=== PATIENT | female | born 1980 | race Caucasian/White ===

== ENCOUNTER 2017-06-15 16:22 | Emergency (ER) | payer MEDICAID, OTHER ==
[~2017-06-15] VITALS: Ht 162.6 cm; Wt 45.0 kg
[~2017-06-15 16:22] MED LIST: IBUP800T23 PO; METH5SOL3 PO; NAPR220T95 PO
[2017-06-15 16:29] VITALS: BP 136/76; PULSE 76; RESP 16; TEMP 99.1; O2SAT 100
[2017-06-15] MEDS ORDERED: BACT800T5 PO (16:48)
--- NOTE | 2017-06-15 16:53 | PD ---
HPI Chief Complaint: Skin Problem Time Seen by Provider: 16:30 Travel History International Travel<30 days: No Contact w/Intl Traveler<30days: No Traveled to known affect area: No History of Present Illness HPI 36 old female presents emergency department for evaluation of possible insect bite left upper extremity. She reports yesterday she was helping her yardwork and shortly after noticed pain and a single small lesion the left upper extremity. Since then she reports areas become increasingly painful and red. She denies fever or chills. She denies history of IV drug abuse. No aggravating or alleviating factors. Symptoms severity is mild to moderate PFSH Past Medical History Asthma: Yes Blood Disorders: No Cancer: No Cardiovascular Problems: No Diabetes: No Diminished Hearing: No Endocrine: No Gastrointestinal Disorders: No Genitourinary: No Immune Disorder: No Implanted Vascular Access Dvce: No Musculoskeletal: Yes (LUMBAR DISC HERNATION-CHRONIC BACK PAIN) Psychiatric: No Reproductive: No Respiratory: Yes (ASTHMA) ?: Not LMP: now Past Surgical History Other Surgery: No Social History Alcohol Use: No Tobacco Use: Yes (1/2ppd) Substance Use: No Allergies-Medications (Allergen,Severity, Reaction): Coded Allergies: Darvocet-N 100 (Verified Adverse Reaction, Severe, "SICK AND DEPRESSED", ) Erythromycin (Verified Adverse Reaction, Severe, vomit, 06/15/17) Reported Meds & Prescriptions Reported Meds & Active Scripts Active No Active Prescriptions or Reported Medications Review of Systems Except as stated in HPI: all other systems reviewed are Neg General / Constitutional: No: Fever Eyes: No: Visual changes HENT: No: Headaches Cardiovascular: No: Chest Pain or Discomfort Respiratory: No: Shortness of Breath Physical Exam Narrative GENERAL: Well-nourished, well-developed patient. SKIN: Focused skin assessment warm/dry. 1 cm circular area of induration/ erythema left anterior forearm. No fluctuance. There is no surrounding cellulitis or lymphangitis. HEAD: Normocephalic. EYES: No scleral icterus. No injection or drainage. NECK: Supple, trachea midline. No JVD or lymphadenopathy. CARDIOVASCULAR: Regular rate and rhythm without murmurs, gallops, or rubs. RESPIRATORY: Breath sounds equal bilaterally. No accessory muscle use. GASTROINTESTINAL: Abdomen soft, non-tender, nondistended. MUSCULOSKELETAL: No cyanosis, or edema. BACK: Nontender without obvious deformity. No CVA tenderness. Data Data Last Documented VS Vital Signs Date Time Temp Pulse Resp B/P Pulse Ox O2 Delivery O2 Flow Rate FiO2 06/15/17 16:29 99.1 76 16 136/76 100 MDM Medical Decision Making Medical Screen Exam Complete: Yes Emergency Medical Condition: Yes Differential Diagnosis Abscess, insect bite, cellulitis Narrative Course 36-year-old female with chief complaint of left arm pain at the site of a Possible insect bite. Physical exam is reassuring. Patient has a single 1 cm circular indurated area. There is no fluctuance. There is no surrounding cellulitis or lymphangitis. Patient be treated for early abscess with Bactrim. Return precautions discussed. Patient verbalizes understanding. Diagnosis Primary Impression: Abscess Referrals: Primary Care Physician Scripts Sulfamethoxazole-Trimethoprim (Bactrim DS)800-160 Mg Tab1 Tab PO BID #20 TAB Prov:Sona Winter 06/15/17 Disposition: 01 DISCHARGE HOME Condition: Stable Sona Winter Jun 15, 2017 16:53
== END 2017-06-15 17:09 | disposition home or self-care (01) ==
LOC: PHEFT 16:22
DX: L02.414 Cutaneous abscess of left upper limb (principal); F17.210 Nicotine dependence, cigarettes, uncomplicated
CPT/HCPCS: 99283

== ENCOUNTER 2017-09-07 08:25 | Emergency (ER) | payer MEDICAID ==
[~2017-09-07] VITALS: Ht 162.6 cm; Wt 46.6 kg
[~2017-09-07 08:25] MED LIST changes: +BACT800T5 PO; -IBUP800T23 PO; -METH5SOL3 PO; -NAPR220T95 PO
[2017-09-07] MEDS ORDERED: NAPR220C22 PO (08:34)
[2017-09-07 08:35] VITALS: BP 131/52; PULSE 68; RESP 18; TEMP 97.7; O2SAT 97
[2017-09-07] MEDS ORDERED: CYCLOBENZAPRINE HCL 10 MG TAB PO ONE (08:45)
[2017-09-07] MEDS ORDERED: IBUPROFEN 600 MG TAB PO ONE (08:45)
--- NOTE | 2017-09-07 08:48 | PD ---
HPI Chief Complaint: Back/ Neck Pain or Injury Time Seen by Provider: 08:33 Travel History International Travel<30 days: No Contact w/Intl Traveler<30days: No Traveled to known affect area: No History of Present Illness HPI patient is a 36-year-old female with a history of degenerative disc disease presents emergency Department with 1 day history of low back pain. Patient states she was lifting a log yesterday and felt sudden onset of pain radiating down her legs and low back pain. She states that she continues to have pain in her low back and lower extremities and states her legs gave out twice yesterday. States the pain is severe. She has not tried anything to help relieve her pain. She denies any saddle anesthesia denies any difficulty urinating denies history of IV drug use or illicit substance use. PFSH Past Medical History Asthma: Yes Blood Disorders: No Cancer: No Cardiovascular Problems: No Diabetes: No Diminished Hearing: No Endocrine: No Gastrointestinal Disorders: No Genitourinary: No Immune Disorder: No Implanted Vascular Access Dvce: No Musculoskeletal: Yes (LUMBAR DISC HERNATION-CHRONIC BACK PAIN) Psychiatric: No Reproductive: No Respiratory: Yes (ASTHMA) Influenza Vaccination: No ?: Not LMP: 08/2017 Past Surgical History Other Surgery: No Social History Alcohol Use: No Tobacco Use: Yes (1/2ppd) Substance Use: No Allergies-Medications (Allergen,Severity, Reaction): Coded Allergies: acetaminophen (Unverified Adverse Reaction, Severe, "SICK AND DEPRESSED", 09/07/17) erythromycin base (Unverified Adverse Reaction, Severe, vomit, 09/07/17) propoxyphene (Unverified Adverse Reaction, Severe, "SICK AND DEPRESSED", 09/07/17) Reported Meds & Prescriptions Reported Meds & Active Scripts Active Flexeril (Cyclobenzaprine HCl) 5 Mg Tab 5 Mg PO TID [place] (Hydrocodone-Acetaminophen) 5-325 mg Tab 1 Tab PO Q6H PRN Ibuprofen 600 Mg Tab 600 Mg PO Q8HR PRN Reported Aleve (Naproxen Sodium) 220 Mg Capsule 220 Mg PO TODAY Review of Systems Except as stated in HPI: all other systems reviewed are Neg Physical Exam Narrative GENERAL: Well-nourished, well-developed patient. In moderate discomfort. SKIN: Focused skin assessment warm/dry. HEAD: Normocephalic. EYES: No scleral icterus. No injection or drainage. NECK: Supple, trachea midline. No JVD or lymphadenopathy. CARDIOVASCULAR: Regular rate and rhythm without murmurs, gallops, or rubs. RESPIRATORY: Breath sounds equal bilaterally. No accessory muscle use. GASTROINTESTINAL: Abdomen soft, non-tender, nondistended. MUSCULOSKELETAL: No cyanosis, or edema. There is some minimal midline low back pain proximal male one her T12. No step-off. She has 5 out of 5 strength in all 4 extremities. Compartments are soft. DTRs are 2+ bilateral equal at patella and Achilles. BACK: Nontender without obvious deformity. No CVA tenderness. Data Data Last Documented VS Vital Signs Date Time Temp Pulse Resp B/P (MAP) Pulse Ox O2 Delivery O2 Flow Rate FiO2 09/07/17 10:25 69 18 125/70 (88) 96 09/07/17 08:35 97.7 Orders Orders Ibuprofen (Motrin) (09/07/17 08:45) Cyclobenzaprine (Flexeril) (09/07/17 08:45) Spine, Lumbar - Ltd (Ap & Lat) (09/07/17 ) Ed Discharge Order (09/07/17 10:06) MDM Medical Decision Making Medical Screen Exam Complete: Yes Emergency Medical Condition: Yes Differential Diagnosis Strain, sprain, fracture seems unlikely, degenerative disc disease, cauda equina is excluded clinically. Given no IV drug use patient is low risk for epidural or spinal abscess. Narrative Course Patient roomed emergency department, given pain medicine, rigidity back were remarkable only for loss of disc space between L5 and S1. She is neurologically intact and stable for discharge. Discussed follow-up with the [facility]. Diagnosis Primary Impression: Low back pain Qualified Codes: M54.42 - Lumbago with sciatica, left side; M54.41 - Lumbago with sciatica, right side Referrals: [facility] Med/Other Pt SpecificInfo: Prescription(s) given Scripts Cyclobenzaprine (Flexeril) 5 Mg Tab 5 MG PO TID for Muscle Spasm, #20 TAB 0 Refills Prov: Dakota Thomas MD 09/07/17 Hydrocodone-Acetaminophen ([place]) 5-325 mg Tab 1 TAB PO Q6H Y for PAIN, #10 TAB 0 Refills Prov: Dakota Thomas MD 09/07/17 Ibuprofen (Ibuprofen) 600 Mg Tab 600 MG PO Q8HR Y for PAIN, #20 TAB 0 Refills Prov: Dakota Thomas MD 09/07/17 Disposition: 01 DISCHARGE HOME Condition: Stable Dakota Thomas MD Sep 07, 2017 08:48
[2017-09-07] MEDS ORDERED: IBUP-232 PO (09:44)
[2017-09-07] MEDS ORDERED: NORC5TAB PO (09:44)
[2017-09-07] MEDS ORDERED: CYCL5TAB PO (09:44)
[2017-09-07 09:50] VITALS: RESP 18
--- NOTE | 2017-09-07 09:59 | RADRPT ---
EXAM DATE/TIME: 09/07/2017 09:11 [facility] COMPARISON: No previous studies available for comparison. INDICATIONS : Patient experiencing low back pain after picking up log. MEDICAL HISTORY : None. SURGICAL HISTORY : None. ENCOUNTER: Initial ACUITY: 1 day PAIN SCORE: 9/10 LOCATION: Bilateral low back FINDINGS: Two view examination was performed. There are five non-rib bearing vertebral bodies. The vertebral bodies are in normal alignment without evidence of subluxation or scoliosis. There is disc space narr owing without significant osteophyte production at L5-S1. Remaining disc spaces are preserved. The pe dicles are intact. Bony mineralization is normal. No fracture is identified. CONCLUSION: L5-S1 degenerative disc disease. No acute abnormality. Washington Flowers Jr., MD on September 07, 2017 at 9:56 Board Certified Radiologist. This report was verified electronically.
[2017-09-07 10:25] VITALS: BP 125/70
== END 2017-09-07 10:26 | disposition home or self-care (01) ==
LOC: PHED 08:25
DX: M54.42 Lumbago with sciatica, left side (principal); M54.41 Lumbago with sciatica, right side; F17.200 Nicotine dependence, unspecified, uncomplicated; Z87.09 Personal history of other diseases of the respiratory system; Z87.39 Personal history of other diseases of the musculoskeletal system and connective tissue
CPT/HCPCS: 72100; 99284

== ENCOUNTER 2017-10-26 09:51 | Emergency (ER) | payer MEDICAID ==
[~2017-10-26] VITALS: Ht 162.6 cm; Wt 48.0 kg
[~2017-10-26 09:51] MED LIST changes: -BACT800T5 PO; +CYCL5TAB PO; +IBUP-232 PO; +NAPR220C22 PO; +NORC5TAB PO
[2017-10-26 09:53] VITALS: BP 113/55; PULSE 85; RESP 16; TEMP 97.9; O2SAT 98
--- NOTE | 2017-10-26 10:14 | PD ---
HPI . Knee injury Chief Complaint: Injury Time Seen by Provider: 10:05 Travel History International Travel<30 days: No Contact w/Intl Traveler<30days: No Traveled to known affect area: No History of Present Illness HPI Patient presents for the evaluation of a right knee injury. She states that she struck her knee 2 weeks ago. She reports increasing pain in her knee since that time. It has also swollen. She states that she has treated it with Aleve , ice and elevation without relief. She denies any previous knee injury or chronic knee problems. She rates the pain at 10/10. She reports no exacerbating or relieving factors. She has no associated symptoms. PFSH Past Medical History Asthma: Yes Blood Disorders: No Cancer: No Cardiovascular Problems: No Diabetes: No Diminished Hearing: No Endocrine: No Gastrointestinal Disorders: No Genitourinary: No Immune Disorder: No Implanted Vascular Access Dvce: No Musculoskeletal: Yes (LUMBAR DISC HERNATION-CHRONIC BACK PAIN) Psychiatric: No Reproductive: No Respiratory: Yes (ASTHMA) Influenza Vaccination: No ?: Not Past Surgical History Surgical History: No Previous Surgery Other Surgery: No Social History Alcohol Use: No Tobacco Use: Yes (1/2ppd) Substance Use: No Allergies-Medications (Allergen,Severity, Reaction): Coded Allergies: acetaminophen (Unverified Adverse Reaction, Severe, "SICK AND DEPRESSED", 10/26/17) erythromycin base (Unverified Adverse Reaction, Severe, vomit, 10/26/17) propoxyphene (Unverified Adverse Reaction, Severe, "SICK AND DEPRESSED", 10/26/17) Reported Meds & Prescriptions Reported Meds & Active Scripts Active Nabumetone 500 Mg Tab 500 Mg PO BID Review of Systems Except as stated in HPI: all other systems reviewed are Neg Musculoskeletal: Positive: Arthralgias, Limited ROM Physical Exam Narrative GENERAL: Awake and alert and in no acute distress. Speaking in a whining voice. SKIN: Warm and dry. Intact. No bruising or abrasions. HEAD: Normocephalic/atraumatic. EYES: Pupils are equal. Extraocular movements are intact. NECK: Normal range of motion. CARDIOVASCULAR: Regular rate and rhythm. RESPIRATORY: Nonlabored respirations. MUSCULOSKELETAL: Swelling of the right knee. Diffusely tender. The knee is stable. Various manipulations of the knee cause no increased pain. She is distally neurovascularly intact. NEUROLOGICAL: Nonfocal. PSYCHIATRIC: Appropriate mood and affect. Data Data Last Documented VS Vital Signs Date Time Temp Pulse Resp B/P (MAP) Pulse Ox O2 Delivery O2 Flow Rate FiO2 10/26/17 09:53 97.9 85 16 113/55 (74) 98 Orders Orders Knee, Complete (4vws) (10/26/17 10:05) Ketorolac Inj (Toradol Inj) (10/26/17 10:15) Roel Bandage (10/26/17 10:33) Crutches (10/26/17 10:33) Ed Discharge Order (10/26/17 10:33) MDM Medical Decision Making Medical Screen Exam Complete: Yes Emergency Medical Condition: Yes Differential Diagnosis Differential diagnosis of extremity trauma includes but is not limited to fracture, sprain or strain, dislocation, contusion Narrative Course This patient presents with a right knee injury which occurred 2 weeks ago. She reports that her symptoms are getting worse rather than better. She does have a swollen. X-ray is pending. Last Impressions Knee X-Ray 10/26/17 1005 Signed Impressions: Service Date/Time: , October 26, 2017 10:15 - CONCLUSION: Tiny joint effusion. Washington Flowers Jr., MD The patient will be discharged home with RICE therapy Diagnosis Primary Impression: Contusion of right knee Qualified Codes: S80.01XA - Contusion of right knee, initial encounter Patient Instructions: Contusion in Adults (DC), General Instructions, RICE Therapy (ED) Med/Other Pt SpecificInfo: Prescription(s) given Scripts Nabumetone (Nabumetone) 500 Mg Tab 500 MG PO BID for Pain-Inflammation, #60 TAB 0 Refills Prov: Ritu Dutta MD 10/26/17 Disposition: DISCHARGE HOME Condition: Stable Ritu Dutta MD Oct 26, 2017 10:14
[2017-10-26] MEDS ORDERED: KETOROLAC TROMETHAMINE 60 MG/2 ML (IM) VIAL IM ONE (10:15)
[2017-10-26] MEDS ORDERED: NABU1TAB37 PO (10:32)
--- NOTE | 2017-10-26 10:38 | RADRPT ---
EXAM DATE/TIME: 10/26/2017 10:15 [facility] COMPARISON: No previous studies available for comparison. INDICATIONS : Right knee pain and swelling, patient hit knee on door 2 weeks ago. MEDICAL HISTORY : None. SURGICAL HISTORY : None. ENCOUNTER: Initial ACUITY: 2 weeks PAIN SCORE: 10/10 LOCATION: Right knee FINDINGS: Four view examination of the right knee demonstrates no evidence of fracture or dislocation. Bony mi neralization is normal. The articular surfaces are intact. Tiny joint effusion. CONCLUSION: Tiny joint effusion. Washington Flowers Jr., MD on October 26, 2017 at 10:35 Board Certified Radiologist. This report was verified electronically.
== END 2017-10-26 10:43 | disposition home or self-care (01) ==
LOC: PHEFT 09:51
DX: S80.01XA Contusion of right knee, initial encounter (principal); W22.8XXA Striking against or struck by other objects, initial encounter
CPT/HCPCS: 73564; 96372; 99284; E0113; J1885

== ENCOUNTER 2017-12-13 16:16 | Emergency (ER) | payer SELFPAY ==
[~2017-12-13] VITALS: Ht 162.6 cm; Wt 47.5 kg
[~2017-12-13 16:16] MED LIST changes: -CYCL5TAB PO; -IBUP-232 PO; +NABU1TAB37 PO; -NAPR220C22 PO; -NORC5TAB PO
[2017-12-13 16:19] VITALS: BP 129/72; PULSE 88; RESP 16; TEMP 98.7; O2SAT 100
[2017-12-13] MEDS ORDERED: ALEV220T14 PO (16:50)
--- NOTE | 2017-12-13 17:11 | PD ---
HPI Chief Complaint: Skin Problem Time Seen by Provider: 16:53 Travel History International Travel<30 days: No Contact w/Intl Traveler<30days: No Traveled to known affect area: No History of Present Illness HPI 36 year old female presents for evaluation left fourth finger pain. Symptoms started 2 days ago. Throbbing pain, constant, worse with palpation. She is uncertain specifically how the pain started-believes that maybe she could have slammed in a door maybe she got poked with a thorn when doing yardwork. she is unable to remove the 2 rings on her finger. She has no other complaints at this time. [facility] Past Medical History Medical History: Denies Significant Hx Asthma: Yes Blood Disorders: No Cancer: No Cardiovascular Problems: No Diabetes: No Diminished Hearing: No Endocrine: No Gastrointestinal Disorders: No Genitourinary: No Immune Disorder: No Implanted Vascular Access Dvce: No Musculoskeletal: Yes (LUMBAR DISC HERNATION-CHRONIC BACK PAIN) Psychiatric: No Reproductive: No Respiratory: Yes (ASTHMA) Tetanus Vaccination: < 5 Years Influenza Vaccination: No ?: Not LMP: 12/13/2016 Past Surgical History Surgical History: No Previous Surgery Other Surgery: No Social History Alcohol Use: No Tobacco Use: Yes (12ppd) Substance Use: No Allergies-Medications (Allergen,Severity, Reaction): Coded Allergies: acetaminophen (Unverified Adverse Reaction, Severe, "SICK AND DEPRESSED", 12/13/17) erythromycin base (Unverified Adverse Reaction, Severe, vomit, 12/13/17) propoxyphene (Unverified Adverse Reaction, Severe, "SICK AND DEPRESSED", ) Reported Meds & Prescriptions Reported Meds & Active Scripts Active Reported Aleve Arthritis (Naproxen Sodium) 220 Mg Tab 220 Mg PO BID Review of Systems Except as stated in HPI: all other systems reviewed are Neg Physical Exam Narrative GENERAL: Well-nourished female who appears uncomfortable SKIN: Warm and dry. HEAD: Atraumatic. Normocephalic. EYES: Pupils equal and round. No scleral icterus. No injection or drainage. ENT: No nasal bleeding or discharge. Mucous membranes pink and moist. NECK: Trachea midline. No JVD. CARDIOVASCULAR: Regular rate and rhythm. No murmur appreciated. RESPIRATORY: No accessory muscle use. Clear to auscultation. Breath sounds equal bilaterally. GASTROINTESTINAL: Abdomen soft, non-tender, nondistended. Hepatic and splenic margins not palpable. MUSCULOSKELETAL: Examination of left hand reveals erythema to the distal left fourth finger, fell and formation of the left fourth finger fingerpad, inability to remove rings from proximal finger. NEUROLOGICAL: Awake and alert. No obvious cranial nerve deficits. Motor grossly within normal limits. Normal speech. Data Data Last Documented VS Vital Signs Date Time Temp Pulse Resp B/P (MAP) Pulse Ox O2 Delivery O2 Flow Rate FiO2 12/13/17 16:19 98.7 88 16 129/72 (91) 100 Orders Orders Lidocaine 1% Inj (Xylocaine 1% Inj) (12/13/17 17:15) Bupivacaine Pf 0.5% Inj (Marcaine Pf 0.5 (12/13/17 17:15) Finger (Xqs5cae) (12/13/17 ) Wound Culture And Gram Stain (12/13/17 17:06) Sulfamet-Trimeth Ds 800-160 Mg (Bactrim (12/13/17 18:00) Cephalexin (Keflex) (12/13/17 18:00) Ed Discharge Order (12/13/17 17:58) [facility] Medical Decision Making Medical Screen Exam Complete: Yes Emergency Medical Condition: Yes Medical Record Reviewed: Yes Differential Diagnosis Felon, cellulitis, tenosynovitis, fracture, ring removal Narrative Course The patient was unable to remove the rings with lubrication. Therefore she consented to have the rings cut off with ring cutters. This was successful. X- ray imaging of the left fourth finger will be obtained. X-ray imaging reveals no acute bony abnormality or foreign body. Examination is consistent with felon and paronychia to the left fourth finger. She verbally consented to wound incision and drainage. Wound culture performed. Her artificial nail also was removed. The patient is being discharged with Bactrim and Keflex. Procedures Procedure Narrative INCISION AND DRAINAGE OF FELON LEFT FOURTH FINGER: The area was prepped and was sterilely draped. Digital block performed with 1% lidocaine and 0.5% Marcaine. The area was properly anesthetized. A number 11 scalpel was used to make a 0.5-cm incision across the area of the abscess. Cultures were obtained. The abscess was drained an irrigated with normal saline. Diagnosis Primary Impression: Felon of finger of left hand Additional Instructions: Medications prescribed. Warm compresses several times a day to the affected area. Motrin for pain. Follow-up with primary care physician and return for any acutely new or worsening symptoms. Med/Other Pt SpecificInfo: Prescription(s) given Scripts Cephalexin (Keflex) 500 Mg Cap 500 MG PO Q8H for Infection, #30 CAP 0 Refills Prov: Juan Diego Jay MD 12/13/17 Sulfamethoxazole-Trimethoprim (Bactrim DS) 800-160 Mg Tab 1 TAB PO BID for Infection, #20 TAB 0 Refills Prov: Juan Diego Jay MD 12/13/17 Disposition: 01 DISCHARGE HOME Condition: Stable Mehdi Hill Dec 13, 2017 17:11
[2017-12-13] MEDS ORDERED: LIDOCAINE HCL 1% 20 ML VIAL INFIL ONE (17:15)
[2017-12-13] MEDS ORDERED: BUPIVACAINE HCL PF 0.5% 10 ML VIAL INFIL ONE (17:15)
--- NOTE | 2017-12-13 17:44 | RADRPT ---
EXAM DATE/TIME: 12/13/2017 17:23 [facility] COMPARISON: No previous studies available for comparison. INDICATIONS : Left hand, fourth digit pain after doing yard work. MEDICAL HISTORY : None. SURGICAL HISTORY : None. ENCOUNTER: Initial ACUITY: 2 days PAIN SCORE: 10/10 LOCATION: Left hand, fourth digit. FINDINGS: Examination of the fourth digit of the left hand demonstrates no evidence of fracture or dislocation. No radiopaque foreign bodies are seen. Mild soft tissue swelling of the fourth finger. CONCLUSION: Unremarkable examination of the left fourth finger except for soft tissue swelling Andres Siegel MD on December 13, 2017 at 17:41 Board Certified Radiologist. This report was verified electronically.
[2017-12-13] MEDS ORDERED: CEPH-460 PO (17:59)
[2017-12-13] MEDS ORDERED: BACT800T5 PO (17:59)
[2017-12-13] MEDS ORDERED: CEPHALEXIN MONOHYDRATE 500 MG CAP PO ONE (18:00)
[2017-12-13] MEDS ORDERED: SULFAMETHOXAZOLE-TRIMETHOPRIM DS 800-160 MG TAB PO ONE (18:00)
== END 2017-12-13 18:25 | disposition home or self-care (01) ==
LOC: PHEFT 16:16
DX: L03.012 Cellulitis of left finger (principal); B95.61 Methicillin susceptible Staphylococcus aureus infection as the cause of diseases classified elsewhere; F17.200 Nicotine dependence, unspecified, uncomplicated; Z87.09 Personal history of other diseases of the respiratory system; Z87.39 Personal history of other diseases of the musculoskeletal system and connective tissue
CPT/HCPCS: 10060; 73140; 86403; 87070; 87186; 87205

== ENCOUNTER 2018-03-26 12:06 | Emergency (ER) | payer OTHER ==
[~2018-03-26] VITALS: Ht 162.6 cm; Wt 48.0 kg
[~2018-03-26 12:06] MED LIST changes: +ALEV220T14 PO; +BACT800T5 PO; +CEPH-460 PO; -NABU1TAB37 PO
[2018-03-26 12:08] VITALS: BP 96/52; PULSE 79; RESP 18; TEMP 97.8; O2SAT 98
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
[2018-03-26] MEDS ORDERED: KETOROLAC TROMETHAMINE 60 MG/2 ML (IM) VIAL IM ONE (14:45)
[2018-03-26] MEDS ORDERED: KETO10 PO (14:58)
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
== END 2018-03-26 15:12 | disposition home or self-care (01) ==
LOC: PHEFT 12:06
DX: M25.561 Pain in right knee (principal); S29.012A Strain of muscle and tendon of back wall of thorax, initial encounter; V89.2XXA Person injured in unspecified motor-vehicle accident, traffic, initial encounter; J45.909 Unspecified asthma, uncomplicated; G89.29 Other chronic pain; M54.9 Dorsalgia, unspecified; F17.200 Nicotine dependence, unspecified, uncomplicated
CPT/HCPCS: 72100; 72125; 73560; 96372; 99284; E0113; J1885; L0150